=== PATIENT | male | born 1930 | race Caucasian/White ===

== ENCOUNTER → 2017-11-25 | Outpatient (CLI) | payer MEDICARE, OTHER ==
[~2017-11-25] MED LIST: AMLO10TA82 PO; AMLO5TAB2 PO; ASP81CT PO; ASP81TEC PO; CODE-54 PO; FURO40TA4 PO; LISI40TA PO; LSNP10T PO; MEMA10TA PO; METO-272 PO; METO100T5 PO; MTP25TSR PO; NAPR-243 PO; OMEP20CA12 PO; POTA-51 PO; TMSL.4C PO; TRAM-21 PO; TRM50T PO; VICODIN PO; sleeping pill
--- NOTE | 2017-11-25 12:33 | Diagnostic Imaging Report ---
PROCEDURE: CT abdomen and pelvis without contrast. TECHNIQUE: Multiple contiguous axial images were obtained through the abdomen and pelvis without the use of intravenous contrast. INDICATION: Gross hematuria. FINDINGS: There is a small 1-2 mm calcification within the left renal pelvis. Whether this is related to a calculus or vascular in nature is not certain. There is no other sign of nephrolithiasis, and there is no evidence for urolithiasis. The kidneys do not seem to be obstructed. The prior exam noted a 1.8 cm benign-appearing cyst along the superior pole of the right kidney. That finding is again evident and no different. The previous study also identified a 1 cm cyst along the posterior aspect of the mid portion of the left kidney. That finding has increased in size and now measures approximately 2 cm in size. I do suspect that this is a benign process. If further study is desired, however, then ultrasound would be recommended. The urinary bladder is only partially distended and consequently difficult to evaluate. There is no obvious bladder abnormality evident. The prostate gland does not appear to be enlarged. There is no pelvic mass or free fluid collection evident. There are a few diverticula in the sigmoid colon, but there is no sign of acute diverticulitis. The appendix was not well visualized, but there are no indirect signs of acute appendicitis. The cysts involving the body of the pancreas seen on the prior exam are again evident and no different. The overall appearance of the pancreas itself has not changed. There is fatty infiltration of the pancreas. The small partially calcified cyst along the inferior portion of the right lobe of the liver seen previously seems stable as well. The liver itself is otherwise no different. The spleen, adrenals, aorta, and inferior vena cava are unremarkable for an acute abnormality. As noted on the prior exam, the gallbladder is surgically absent. There is fatty infiltration of the pancreas. There is no pancreatic mass identified, however. The stomach is partially filled with fluid and consequently difficult to assess. The small hiatal hernia seen on the prior exam is again evident. The lung bases are clear. The bone windows show no evidence for a fracture or for a destructive lesion. IMPRESSION: 1. There is a minute calcific density within the left renal pelvis. Whether this is related to an isolated calcification or whether this is vascular in nature is not certain. At any rate, there does not appear to be any obstruction of either collecting system by a calculus. There is no sign of a solid renal mass either. 2. The cyst along the posterior aspect of the left kidney noted on the prior study has increased in size. This cyst still has a generally benign appearance. If further evaluation of this finding is desired, then ultrasound would be recommended. 3. The overall appearance of the abdomen and pelvis has not changed significantly otherwise. No new abnormality has developed. Dictated by: Dictated on workstation # [id number]
== END ==
LOC: RAD 09:41
PROVIDERS: ATTEND Urology
DX: N20.0 Calculus of kidney (principal); N28.1 Cyst of kidney, acquired
CPT/HCPCS: 74176